=== PATIENT | female | born 1940 | race African-American/Black ===

== ENCOUNTER 2016-11-21 13:12 | Inpatient (IN) | payer MEDICARE, OTHER ==
[~2016-11-21] VITALS: Ht 152.4 cm; Wt 61.2 kg
--- NOTE | ~2016-11-21 | CN ---
Consultation Report [facility] [address] [place]. [address] NAME: CRISTA ROWELL : 38 STATUS : ADM IN PAT#: [id number] AGE: 76 ADM/REG DATE : 11/21/16 MR#: [id number] REPORT SERV DATE: 11/22/16 DICTATED BY: DATE: REPORT STATUS : Draft TRANSCRIBED BY: MODL DATE: 11/22/16 CONSULTATION DATE OF CONSULTATION: REASON FOR CONSULTATION: Chest pain and intermittent bradycardia. HISTORY OF PRESENT ILLNESS: Ms. Rowell is a delightful 76-year-old female who has a medical history of hypertension, well controlled; diverticulosis; and a questionable history of dementia, who was admitted for the concern of hemoperitoneum and potential GI mass. She has been having some nonspecific symptoms that caused her to present to an outside ER. Ultimately, this issue led to a workup secondary to her hypertension with blood pressures in the 80s over 40s and a low heart rate in the 60s. CT abdomen and pelvis revealed a small hemoperitoneum and a homogeneous solid mass at the lesser curvature of the stomach, which could potentially be consistent with a GIST, although the hemoperitoneum and potential mass were not necessarily related. Based on that, she was transferred to [facility] for further care. She was seen by Gastroenterology who wanted to do an endoscopy with biopsy today. Her hemoglobin had downtrended slightly, but was still far from being anemic. However, this morning, the patient started endorsing a little bit of chest pain and this prompted a cardiology consultation along with some sinus bradycardia in the upper 50s. When I asked Ms. Rowell about her symptoms, she said that she predominantly has abdominal pains, though occasionally, like this morning, they would radiate to the chest. They would come and go without activity or exertion, and they would subside on their own, sometimes after 30 minutes of time. She does not endorse any shortness of breath with these episodes. No palpitations, lightheadedness, dizziness, or syncope. [facility] is consulted for management of this atypical chest pain with a negative troponin x2. PAST MEDICAL HISTORY: 1. Hypertension. 2. Diverticulosis. 3. Recently discovered mass on the lesser curvature of the stomach requiring further workup. SOCIAL HISTORY: She quit smoking in the 1940s, but smoked 20 years, one pack a week for relatively low pack-year history. FAMILY HISTORY: Her father in his late 20s of unknown causes. ALLERGIES: NO KNOWN DRUG ALLERGIES. Consultation Report [facility] [address] [place]. [address] NAME: CRISTA ROWELL : 38 STATUS : ADM IN PAT#: [id number] AGE: 76 ADM/REG DATE : 11/21/16 MR#: [id number] REPORT SERV DATE: 11/22/16 DICTATED BY: DATE: REPORT STATUS : Draft TRANSCRIBED BY: MODL DATE: 11/22/16 MEDICATIONS: Currently: 1. Unasyn 3 g q.6 hours. 2. Lipitor 20 mg p.o. at bedtime. 3. Protonix 40 mg IV twice daily. 4. Colace. 5. P.r.n. Dilaudid. Please note that her antihypertensive regimen of amlodipine, rosuvastatin, and valsartan are presently being held. REVIEW OF SYSTEMS: A 10-point review of systems was conducted and was otherwise unremarkable. PHYSICAL EXAMINATION: VITAL SIGNS: Heart rates 56-67, blood pressure 107 to 125 over 51 to 68, breathing 18 times a minute, saturating 99% on room air. She is at a weight of 61 kg and a BMI of 26. GENERAL: She is a pleasant, female appearing much younger than stated age who is in no acute distress. HEENT: Normocephalic, atraumatic. EOMI. Mucous membranes are moist. LUNGS: Clear to auscultation bilaterally. No wheezes, rales, or rhonchi. CARDIOVASCULAR: Regular rate and rhythm, normal S1, S2. No murmurs, rubs, or gallops. ABDOMEN: She is soft, nontender, with hyperactive bowel sounds. No organomegaly or rebound or guarding was appreciated. EXTREMITIES: No clubbing, cyanosis, or edema. 2+ pulses were appreciated in the wrists bilaterally. NEURO: The patient is alert and oriented x4. Cranial nerves 2 through 12 are grossly intact. LABS: Notable for a potassium of 4.4, creatinine of 1, hemoglobin which is 11.1 down trending from 13. Troponins are negative x2. IMAGING: The patient had a chest x-ray, which revealed a mild elevation of the right hemidiaphragm without any acute findings. She also had mild cardiomegaly. EKG: The patient has sinus bradycardia with a left bundle-branch block. There are nonspecific T-wave findings in the inferior leads. She appears to have Q-waves in the anterior leads that would meet criteria for possible infarct. On tele, the patient is alternating between sinus bradycardia and sinus rhythm in the 50s to 80s. She has the left bundle-branch block and no events on telemetry that are noted. ASSESSMENT AND PLAN: Ms. Rowell is a 76-year-old female, who presents primarily with abdominal pain and subsequently found to have an abdominal mass requiring further workup by a biopsy, who is also noting some atypical chest pain. The fact that this pain has been coming and going for months and has not yielded that a positive troponin is Consultation Report [address] [place]. [address] NAME: CRISTA ROWELL : 38 STATUS : ADM IN PAT#: [id number] AGE: 76 ADM/REG DATE : 11/21/16 MR#: [id number] REPORT SERV DATE: 11/22/16 DICTATED BY: DATE: REPORT STATUS : Draft TRANSCRIBED BY: MODL DATE: 11/22/16 somewhat reassuring, though her EKG does reveal a bundle-branch block and these inferior Q- waves which may represent infarct, although it is unclear at this time. I think it would be reasonable to exclude any cardiac disease and so we will obtain a pharmacologic nuclear test by virtue of the fact that she has left bundle-branch block and this would be the preferred modality for this testing. I am hopeful that this will be a negative study for her, as her symptoms do not sound classic, and I think the challenges of determining a strategy as it relates to pursuing further workup of a positive stress will be challenging in the setting of this underlying mass that was discovered. With respect to her hypertension, I agree with having off her antihypertensives at the present time, specifically as she may be losing a little bit of blood and is normotensive at the present time. [facility] will continue to follow. Thank you for this consultation. PETER/BETH Tyson Chaudhari IV, MD / [id number] CC: Samir Mark MD
--- NOTE | ~2016-11-21 | HP ---
History And Physical [facility] [address] [place]. [address] NAME: CRISTA CORRIGAN : 38 STATUS : ADM IN PAT#: [id number] AGE: 76 ADM/REG DATE : 11/21/16 MR#: [id number] REPORT SERV DATE: 11/22/16 DICTATED BY: SAMIR MARK DATE: 11/21/16 REPORT STATUS : Draft TRANSCRIBED BY: MODGhassan DATE: 11/21/16 DATE OF ADMISSION: 11/21/2016 CHIEF COMPLAINT: Transfer from outside emergency department for multiple findings on CT of abdomen and pelvis including a hemoperitoneum. HISTORY OF PRESENT ILLNESS: Of note, the patient and her are both poor historians and there are no prior records to review outside of those provided by the outside emergency department. Ms. Corrigan is a 76-year-old female with a history of hypertension as well as a history of diverticulosis and what appears to be a diagnosis of dementia, who presents as a transfer from outside emergency department after presenting with not feeling well in general. The patient has trouble telling me what brought her into the emergency department this morning, but she says that in general she did not feel well and felt "funny overnight." On further questioning, she does admit to having some diffuse abdominal tenderness, but otherwise has been fairly asymptomatic. She said that prior to presenting to the emergency department, she had "a funny feeling in her chest as well as her head" though denies pain. Aside from her abdominal tenderness, she denies any abdominal distention. She denies any nausea and vomiting. She denies fevers and chills. She reports to me that she has had normal bowel movements and denies melena. She denies any bleeding in general or having been prone to bleeding in the past. She denies chest pain. She denies shortness of breath. She denies dysuria. She denies dizziness or lightheadedness or near syncope. She denies any sick contacts. She does report that she had similar symptoms that she also cannot describe well few months ago that self resolved. She denies taking any blood thinners. She does report that she has had some memory issues recently. She does not think that her pain is worse with p.o. intake and she denies any unintentional weight loss recently. Per my conversation with the emergency department physician at the outside hospital, the patient presented, was found to be a bit hypotensive with systolics of 80/44 with heart rate in the 60s. She received a L of normal saline and was started on a rate of normal saline as well. Her labs at the outside hospital were completely unremarkable with a normal CBC, normal BMP, negative troponin, and normal INR. She did eventually undergo a CT of her abdomen and pelvis initially with just IV contrast and there was initially concern for possible small bowel obstruction and so she was administered p.o. contrast and then underwent another CT of her abdomen and pelvis. On her 2nd CT abdomen and pelvis, she was noted to have what appeared to be a small hemoperitoneum though the size of this was not described in the radiology report I received though they did note that it had reportedly increased in size from her prior CT scan earlier this morning. She had many findings on her CT scan including significant diverticulosis though no evidence of diverticulitis. She also had homogeneous solid mass at the lesser curvature of the stomach that the radiologist felt could be possibly consistent with a GI stromal tumor though they did not feel that her hemoperitoneum could be related to this mass. She also had evidence of enteritis on her CT scans this morning as well as possible ileus and then also evidence of gastritis on her CT from this morning. History And Physical [address] [address] NAME: CRISTA CORRIGAN : 38 STATUS : ADM IN [facility]#: [id number] AGE: 76 ADM/REG DATE : 11/21/16 MR#: [id number] REPORT SERV DATE: 11/22/16 DICTATED BY: SAMIR MARK DATE: 11/21/16 REPORT STATUS : Draft TRANSCRIBED BY: MODGhassan DATE: 11/21/16 Given her findings of hemoperitoneum and their lack of ability to consult Surgery at the outside hospital, she was transferred here for further care. ALLERGIES: SHE REPORTS NO DRUG ALLERGIES THOUGH SHE SAYS SHE IS ALLERGIC TO TETANUS SHOT. PAST MEDICAL HISTORY: Hypertension, some memory issues as she calls it, and some diverticulosis. PAST SURGICAL HISTORY: She said she had an unknown stomach surgery around 20 years ago, but denies any other surgeries in her family. She has trouble recalling, but notes that her brother had a myocardial infarction at one point. SOCIAL HISTORY: It took some time for both her and her to tell me where they lived, but she lives with her in [place], [place]. She is a former smoker, but quit at least 40-50 years ago. She does not use alcohol and she does not use drugs. MEDICATIONS: She reportedly taking is Actonel 35 mg one time per week, 10 mg of Crestor nightly, Valsartan 320 mg daily, donepezil 5 mg daily and 10 mg of amlodipine daily. PHYSICAL EXAMINATION: VITAL SIGNS: On admission, temperature is 97.7 degrees Fahrenheit, pulse is 55, respirations 18, saturating 100% on room air, and blood pressure is 125/65. GENERAL: She is well appearing. She is in no acute distress though she is under multiple blankets and is complaining of being cold with her normal temperature. HEENT: She is normocephalic, atraumatic. There is no evidence of scleral icterus. NECK: There is no lymphadenopathy on palpation. CARDIOVASCULAR: She had a regular rate and rhythm. No rubs, murmurs, or gallops were appreciated. PULMONARY: Lungs were clear to auscultation bilaterally with no increased work of breathing. ABDOMEN: She had active bowel sounds. She is nondistended though she was tender to palpation diffusely with no distention. No rebound. No guarding. EXTREMITIES: There is no edema in the lower extremities. NEURO: She was alert and oriented though had trouble recalling her medical history. No focal deficits on exam. PSYCHIATRIC: She had poor medical insight. LABORATORY DATA AND IMAGING: White blood cell count of 8.9, her hemoglobin is 12.4, her hematocrit is 37.1, platelets 270. Sodium 142, potassium 3.8, chloride 110, bicarb 23, BUN is 24, creatinine is 0.98. Her lactate is 1.5. Magnesium is 2.4, phosphorus is 2.8, albumin is 3.1. Total bilirubin is 0.3. Alkaline phosphatase is 82, ALT is 19, AST is 14. Lipase is 103. Urinalysis is pending, though at the outside facility had large leukocyte esterase, negative nitrite, and bacteria present. Blood cultures are pending. IMAGING: Repeat CT of the abdomen and pelvis with and without contrast is pending. History And Physical [address] [place]. [address] NAME: CRISTA CORRIGAN : 38 STATUS : ADM IN PAT#: [id number] AGE: 76 ADM/REG DATE : 11/21/16 MR#: [id number] REPORT SERV DATE: 11/22/16 DICTATED BY: SAMIR MARK DATE: 11/21/16 REPORT STATUS : Draft TRANSCRIBED BY: MODL DATE: 11/21/16 ASSESSMENT AND PLAN: 1. Abdominal pain, difficult to describe, with multiple findings on outside CT abdomen and pelvis including hemoperitoneum, gastritis, enteritis, as well as diverticulosis. Labs as mentioned before. She has no evidence of coagulopathy. On admission, is not on blood thinners. For her hemoperitoneum, we will consult General Surgery. Given her relative stability with normal hemoglobin and lack of hypotension here, we will repeat her CT abdomen and pelvis and have General Surgery see her tomorrow morning or overnight should she decompensate. For evidence of gastritis at the outside hospital, we will start her on 40 mg of IV Protonix b.i.d., and then for her evidence of enteritis at the outside hospital, we will go ahead and start her on Unasyn for now especially in the setting of hypotension prior to transfer with a positive UA. We will give her clear liquids overnight and we will hold any prophylactic anticoagulation until we can further assess her hemoperitoneum. 2. The thought behind repeating her CT on admission is that she had two CTs prior today, but given progression between the two images and really the multitude of findings on our last image, we will repeat here and see what our radiologist thing. She is already on IV fluids. We will continue those overnight at 150 mL/h lactated Ringer's and monitor for any sort of contrast-induced nephropathy. 3. Urinary tract infection. She denies dysuria, but her urinalysis at the outside hospital was consistent with UTI. She does have difficult to describe abdominal pain. Given those findings, we will go ahead and treat her with Unasyn as we are treating her for enteritis anyway. We will follow up cultures. 4. Hypertension. We will hold her antihypertensive from home in the setting of her hypotension prior to transfer and monitor blood pressure. 5. Code status. I discussed the patient's code status with her and her . She wishes to be a full code. 6. DVT prophylaxis. We will place SCDs in the setting of hemoperitoneum. BRENT/BETH Samir Mark MD / [id number] CC: Samir Mark MD
--- NOTE | ~2016-11-21 | EGD ---
EGD REPORT [facility] [address] [place] [address] NAME: CRISTA ROWELL : 38 STATUS : ADM IN PAT#: [id number] AGE: 76 ADM/REG DATE : 11/21/16 MR#: [id number] REPORT SERV DATE: 11/23/16 DICTATED BY: HOWARD ROBLERO DATE: 11/23/16 REPORT STATUS : Draft TRANSCRIBED BY: [facility] DATE: 11/23/16 Endoscopy Center Patient Name: Crista Rowell Date of : 1940 Attending MD: HOWARD ROBLERO MD Procedure Date No Time: 11/23/2016 Procedure: Upper GI endoscopy Indications: Epigastric abdominal pain, Anemia, Abnormal CT of the GI tract Medicines: Propofol per Anesthesia Complications: No immediate complications. Procedure: After obtaining informed consent, the endoscope was passed under direct vision. Throughout the procedure, the patient's blood pressure, pulse, and oxygen saturations were monitored continuously. The GIF [id number] was introduced through the mouth, and advanced to the third part of duodenum. The upper GI endoscopy was accomplished without difficulty. The patient tolerated the procedure well. Findings: Non-severe esophagitis with no bleeding was found in the entire esophagus. A medium-sized hiatus hernia was present. as seen on retroflexion Diffuse mild inflammation characterized by adherent blood, congestion (edema), erosions, erythema, linear erosions, deep ulcerations and shallow ulcerations was found in the entire examined stomach. Biopsies were taken with a cold forceps for Helicobacter pylori testing. A single medium-sized papule (nodule) with no bleeding and no stigmata of recent bleeding was found in the gastric fundus. Biopsies were taken with a cold forceps for histology. Diffuse mild inflammation characterized by congestion (edema) and erythema was found in the duodenal bulb. The 2nd part of the duodenum and 3rd part of the duodenum were normal. Impression: - Non-severe reflux esophagitis. - Hiatus hernia. - Gastritis. Biopsied. - A single medium-sized papule (nodule) with no bleeding and no stigmata of recent bleeding was found in the stomach. Biopsied. - Duodenitis. - Normal 2nd part of the duodenum and 3rd part of the duodenum. EGD REPORT [address] [address] NAME: CRISTA ROWELL : 38 STATUS : ADM IN [facility]#: [id number] AGE: 76 ADM/REG DATE : 11/21/16 MR#: [id number] REPORT SERV DATE: 11/23/16 DICTATED BY: HOWARD ROBLERO DATE: 11/23/16 REPORT STATUS : Draft TRANSCRIBED BY: [employer] DATE: 11/23/16 Recommendation: - Patient has a contact number available for emergencies. The signs and symptoms of potential delayed complications were discussed with the patient. Return to normal activities tomorrow. Written discharge instructions were provided to the patient. - Continue present medications. - Low fat diet. - Continue present medications. - Await pathology results. - Return patient to hospital cr for ongoing care. Procedure Code(s): --- Professional --- 52574, Esophagogastroduodenoscopy, flexible, transoral; with biopsy, single or multiple Diagnosis Code(s): --- Professional --- K21.0, Gastro-esophageal reflux disease with esophagitis K44.9, Diaphragmatic hernia without obstruction or gangrene K29.70, Gastritis, unspecified, without bleeding K31.9, Disease of stomach and duodenum, unspecified K29.80, Duodenitis without bleeding R10.13, Epigastric pain D64.9, Anemia, unspecified R93.3, Abnormal findings on diagnostic imaging of other parts of digestive tract CPT copyright 2013 [employer]. All rights reserved. The codes documented in this report are preliminary and upon operation research analyst review may be revised to meet current compliance requirements. Howard Roblero MD HOWARD ROBLERO MD 11/23/2016 6:24 PM This report has been signed electronically. Number of Addenda: 0 Note Initiated On: 11/23/2016 5:38 PM Scope Withdrawal Time 0 hours 0 minutes 0 seconds [id number] [id number]
--- NOTE | ~2016-11-21 | CN ---
Consultation Report [facility] [address] [place]. [address] NAME: CRISTA ROWELL : 38 STATUS : ADM IN [facility]#: [id number] AGE: 76 ADM/REG DATE : 11/21/16 MR#: [id number] REPORT SERV DATE: 11/21/16 DICTATED BY: DURGA ANDRADE DATE: 11/21/16 REPORT STATUS : Draft TRANSCRIBED BY: MODL DATE: 11/21/16 CONSULTATION DATE OF CONSULTATION: 11/21/2016 REASON FOR CONSULTATION: Possible hemoperitoneum and abdominal pain. HISTORY OF PRESENT ILLNESS: Ms. Rowell is a 76-year-old female who went to the [facility] Emergency Room because she was short of breath and feeling faint. She denies having any abdominal pain. She does have a history of some type of gastric surgery, she does not recall why she had that surgery. It was more than 20 years ago. Her hemoglobin was 13 at [facility] and the CT scan done there without p.o. contrast showed a small amount of fluid in the hepatorenal space, mesentery, and a scant amount in the pelvis consistent with blood. The source was not evident. She has a 3 x 3 cm homogeneous mass on the lesser curvature of the stomach and also extensive diverticular disease without evidence of inflammation. Please see Dr. Mark's dictation from 11/21/2016 for past medical history, past surgical history, allergies, medications, social history, family history. REVIEW OF SYSTEMS: As stated in HPI, otherwise, negative. PHYSICAL EXAMINATION: VITAL SIGNS: 97.7, 55, 125/65. GENERAL: Alert elderly black female, in no acute distress. HEENT: Normocephalic, atraumatic. EOMI. PERRLA, oropharynx clear. NECK: Supple. No lymphadenopathy. LUNGS: Clear to auscultation bilaterally. HEART: Regular rate and rhythm. ABDOMEN: Soft, nontender, nondistended with appropriate surgical scar. EXTREMITIES: She moves all extremities well. NEUROLOGIC: Cranial nerves 2 through 12 intact. LABS: Labs at [facility] are currently pending but at [facility] at 06:40 a.m. this morning; white count was 8.8, H and H 13 and 38, platelets of 334. Electrolytes within normal range. Creatinine is 0.72. LFTs are normal. INR 0.94. CT scan as mentioned above. Of note, the patient has never had an EGD, and she said the colonoscopy was many years ago. ASSESSMENT AND PLAN: Presumed bleeding from a gastric mass. If her H and H are stable, I would recommend Gastroenterology for EGD and biopsy. If H and H are not stable then she will go to the operating room for curative resection and hemostasis. In the meantime, I would recommend no heparin or aspirin products. Consultation Report [address] [place] [facility] [address] NAME: CRISTA ROWELL : 38 STATUS : ADM IN PAT#: [id number] AGE: 76 ADM/REG DATE : 11/21/16 MR#: [id number] REPORT SERV DATE: 11/21/16 DICTATED BY: DURGA ANDRADE DATE: 11/21/16 REPORT STATUS : Draft TRANSCRIBED BY: BETH DATE: 11/21/16 It is my pleasure participating in the care of your patient. CELI/BETH Durga Andrade M.D. / [id number] CC: Samir Mark MD
--- NOTE | ~2016-11-21 | DS ---
Discharge Summary [facility] [address] [place]. [address] NAME: CRISTA ROWELL : 36 STATUS : DIS IN PAT#: [id number] AGE: 76 ADM/REG DATE : 11/21/16 MR#: [id number] REPORT SERV DATE: 11/25/16 DICTATED BY: SAMIR BEE DATE: 11/24/16 REPORT STATUS : Draft TRANSCRIBED BY: MODL DATE: 11/24/16 ADMISSION DATE: 11/21/2016 DISCHARGE DATE: 11/24/2016 DISCHARGE DIAGNOSES: 1. Gastritis and duodenitis leading to abdominal pain. 2. Gastric mass. 3. Urinary tract infection present on admission. 4. Hypertension. 5. Dementia. HOSPITAL COURSE: Please refer to the history and physical dictated by myself on 11/21/2016 for full history of this patient. Briefly, this patient presented as transfer from an outside facility due to concerns largely for new gastric mass as well as concerns for an intraabdominal bleed. The patient arrived here in stable condition with a stable hemoglobin and with normal lab findings, though she did have some abdominal discomfort. She was started on IV fluids and repeat imaging was obtained, and both Surgery and GI were consulted. Her new imaging which is noted below did not show any evidence of enteritis or intraabdominal hemorrhage, both of which were commented on in the CT at the outside facility, though it did re-demonstrate the gastric mass. The patient underwent an EGD on 11/24/2016 which showed gastritis and duodenitis, and a small nodule in the stomach that was biopsied. The patient had already been on IV Protonix and will be discharged with p.o. Protonix b.i.d. for her gastritis and duodenitis. Regarding her gastric mass Surgery was involved and given her excellent stability felt that the best management of this patient would be discharged home with Surgery follow up in two to three weeks at which time a laparoscopic procedure could be discussed to further investigate this mass. It seems that Surgery's opinion at this point, is that it just is the most likely etiology of this mass. For her urinary tract infection, she arrived with urinalysis that was fairly unremarkable, though her urine at the outside facility looked convincing for an infection. Given the concern initially for enteritis as well as concern for urinary tract infection, she was placed on Unasyn for which she received three days dosing ultimately for urinary tract infection. She remained afebrile with a normal white count and without symptoms of dysuria during her admission. The patient also did experience some chest discomfort while hospitalized that was somewhat concerning for angina, Cardiology was consulted. Troponin was negative multiple times. An EKG showed no signs of ischemic disease. She did undergo a vasodilator stress test which did not reveal any evidence of ischemia and was felt to be low risk for ischemic disease. PERTINENT IMAGING AND PROCEDURES DURING THIS ADMISSION: CT of the abdomen and pelvis, 11/22/2016. Impression: CT with no bowel obstruction or bowel wall inflammation, and the patient has several colonic diverticula without acute diverticulitis. Apparent thickening Discharge Summary [address] [place]. [address] NAME: CRISTA ROWELL : 36 STATUS : DIS IN [facility]#: [id number] AGE: 76 ADM/REG DATE : 11/21/16 MR#: [id number] REPORT SERV DATE: 11/25/16 DICTATED BY: SAMIR BEE DATE: 11/24/16 REPORT STATUS : Draft TRANSCRIBED BY: BETH DATE: 11/24/16 of the wall of distal colon is likely related to lack of distention. A 2.9 x 2.6 x 4 cm well-circumscribed soft tissue mass in the upper abdomen that is in contact with the diaphragm, lesser curvature of the stomach, celiac artery, and pancreas. The differential diagnosis for lesion would include just complex enteric duplication cyst, adenopathy, further eval with PET-CT should be considered if clinically indicated. Small amount of free fluid in the right posterior cul de sac. No abscess collections are present. Common bile duct is prominent in size measuring 10 mm. No gallstones or common bile duct stones are identified. There is no intrahepatic bile duct dilatation or pancreatic duct dilatation. Vasodilators stress test on 11/23/2016, low risk stress test. Transthoracic echocardiogram, 11/23/2016. Summary: Normal LV size with normal systolic function. EF is 50%. Mild anterior hypokinesis. Mild diastolic dysfunction. Normal RV size and systolic function. Aortic valve sclerosis without stenosis. No evidence of pericardial effusion. No previous echo available for comparison. EGD, 11/24/2016. Impression: Non severe reflux esophagitis. Hiatal hernia. Gastritis. Biopsied a single medium-sized papule with no bleeding and no stigmata of recent bleeding was found in the stomach biopsied. Duodenitis normal, second part of the duodenum and third part of the duodenum. DISCHARGE MEDICATIONS: 1. Multivitamin tablet p.o. daily. 2. Pantoprazole 40 mg p.o. twice per day. 3. Actonel 35 mg tablet p.o. daily. 4. Crestor 10 mg p.o. at bedtime. 5. Valsartan 320 mg p.o. daily. 6. Amlodipine 10 mg p.o. daily. FOLLOWUP: As mentioned prior, the patient will follow up in three to four weeks with Dr. Silverman for further consideration of investigation of her gastric mass including possible laparoscopic surgery. She will continue to take her 40 mg p.o. pantoprazole b.i.d. The patient did not have a primary care provider, so we did assist in finding a primary care doctor for her and she has an appointment with Dr. Dang Daily in [place], [place], on 12/06/2016, at 10:30 a.m. Approximately 40 minutes were spent coordinating discharge of this patient. BRENT/BETH Samir Bee MD / [id number] Discharge Summary [address] [address] NAME: CRISTA ROWELL : 36 STATUS : DIS IN PAT#: [id number] AGE: 76 ADM/REG DATE : 11/21/16 MR#: [id number] REPORT SERV DATE: 11/25/16 DICTATED BY: SAMIR BEE DATE: 11/24/16 REPORT STATUS : Draft TRANSCRIBED BY: BETH DATE: 11/24/16 CC: Samir Bee MD
[2016-11-21] MEDS ORDERED: CRESTOR10 PO (17:04)
[2016-11-21] MEDS ORDERED: ACTONEL35 MG PO (17:04)
[2016-11-21] MEDS ORDERED: DIOVAN320 MG PO (17:04)
[2016-11-21] MEDS ORDERED: NORV10 PO (17:05)
[2016-11-21] MEDS ORDERED: THERGRANM PO (17:05)
[2016-11-21 17:44] LABS: BASOPHILS 0.1 %; BASOPHILS ABSOLUTE 0.01 10/3/uL (0.0-0.16); EOSINOPHILS 0.6 %; EOSINOPHILS ABSOLUTE 0.05 10/3/uL (0.0-0.53); HEMATOCRIT 37.1 % (36.0-48.0); HEMOGLOBIN 12.4 g/dL (12.0-16.0); IMMATURE GRANULOCYTES 0.2 %; IMMATURE GRANULOCYTES ABSOLUTE 0.02 10/3/uL (0.0-0.11); LYMPHOCYTES 18.9 %; LYMPHOCYTES ABSOLUTE 1.69 10/3/uL (0.67-4.30); MANUAL DIFF NO %; MEAN CORPUS HGB CONC 33.4 g/dL (32.0-36.0); MEAN CORPUSCULAR HEMOGLOB 27.9 pg (26.0-34.0); MEAN CORPUSCULAR VOLUME 83.4 fL (80-100); MEAN PLATELET VOLUME 9.2 fL (9.2-13.0); MONOCYTES 6.2 %; MONOCYTES ABSOLUTE 0.55 10/3/uL (0.21-1.20); NEUTROPHILS ABSOLUTE 6.61 10/3/uL (2.02-8.40); PLATELET COUNT 270 10/3/uL (150-400); RBC DISTRIBUTION WIDTH 13.9 % (12.0-16.0); RED CELL COUNT 4.45 10/6/uL (4.0-5.6); WHITE BLOOD CELLS 8.9 10/3/uL (4.5-10.5)
[2016-11-21 17:57] LABS: A/G RATIO 1.2 (0.7-1.9); ALBUMIN 3.1 G/DL (3.5-5.0); ALKALINE PHOSPHATASE 82 U/L (45-117); BUN (BLOOD UREA NITROGEN) 24 MG/DL (6-23); CALCIUM, SERUM 8.4 MG/DL (8.5-10.4); CHLORIDE, SERUM 110 MMOL/L (96-112); CO2 (CARBON DIOXIDE) 23 MMOL/L (24-34); CREATININE 0.98 MG/DL (0.55-1.02); GFR AFRICAN AMERICAN 64 ML/MIN (>=60); GFR NON AFRICAN AMERICAN 55 ML/MIN (>=60); GLOBULIN 2.5 G/DL (2.5-4.1); GLUCOSE, SERUM 76 MG/DL (60-99); PHOSPHORUS, SERUM 2.8 MG/DL (2.5-4.5); POTASSIUM, SERUM 3.8 MMOL/L (3.5-5.3); SGOT(AST) 14 U/L (5-40); SGPT(ALT) 19 U/L (5-65); SODIUM, SERUM 142 MMOL/L (135-148); TOTAL BILIRUBIN 0.3 MG/DL (0-1.2); TOTAL PROTEIN 5.6 G/DL (6.0-8.5)
[2016-11-21 18:11] LABS: INTERNATIONAL NORMAL RATI 1.1 UNITS (-); PARTIAL THROMBO TIME 25.6 SEC (22.5-37.2); PROTIME (NOT ORD) 13.7 SEC (12.0-14.5)
[2016-11-21 22:46] LABS: ASCORBIC ACID (UR NOT ORDER) NEG (NEG); BILIRUBIN, URINE NEGATIVE (NEG); KETONE, URINE NEGATIVE (NEG); LEUKOCYTE ESTERASE(NOT OR NEG (NEG); WBC (NOT ORDERED) (RFLEX) 2 (0-5)
[2016-11-22 06:10] LABS: BASOPHILS 0.2 %; BASOPHILS ABSOLUTE 0.01 10/3/uL (0.0-0.16); EOSINOPHILS 1.3 %; EOSINOPHILS ABSOLUTE 0.07 10/3/uL (0.0-0.53); HEMATOCRIT 33.4 % (36.0-48.0); HEMOGLOBIN 11.1 g/dL (12.0-16.0); IMMATURE GRANULOCYTES 0.2 %; IMMATURE GRANULOCYTES ABSOLUTE 0.01 10/3/uL (0.0-0.11); LYMPHOCYTES 27.9 %; LYMPHOCYTES ABSOLUTE 1.48 10/3/uL (0.67-4.30); MEAN CORPUS HGB CONC 33.2 g/dL (32.0-36.0); MEAN CORPUSCULAR HEMOGLOB 27.8 pg (26.0-34.0); MEAN CORPUSCULAR VOLUME 83.5 fL (80-100); MEAN PLATELET VOLUME 9.2 fL (9.2-13.0); MONOCYTES ABSOLUTE 0.37 10/3/uL (0.21-1.20); NEUTROPHILS 63.4 %; NEUTROPHILS ABSOLUTE 3.37 10/3/uL (2.02-8.40); PLATELET COUNT 260 10/3/uL (150-400); RBC DISTRIBUTION WIDTH 14.1 % (12.0-16.0)
[2016-11-22 06:11] LABS: MANUAL DIFF NO %; WHITE BLOOD CELLS 5.3 10/3/uL (4.5-10.5)
[2016-11-22 06:18] LABS: INTERNATIONAL NORMAL RATI 1.1 UNITS (-)
[2016-11-22 06:28] LABS: ALBUMIN 3.1 G/DL (3.5-5.0); ALKALINE PHOSPHATASE 77 U/L (45-117); BUN (BLOOD UREA NITROGEN) 17 MG/DL (6-23); CALCIUM, SERUM 8.6 MG/DL (8.5-10.4); CHLORIDE, SERUM 113 MMOL/L (96-112); CO2 (CARBON DIOXIDE) 26 MMOL/L (24-34); CREATININE 0.99 MG/DL (0.55-1.02); GFR AFRICAN AMERICAN 63 ML/MIN (>=60); GFR NON AFRICAN AMERICAN 55 ML/MIN (>=60); GLUCOSE, SERUM 90 MG/DL (60-99); POTASSIUM, SERUM 4.4 MMOL/L (3.5-5.3); SGOT(AST) 15 U/L (5-40); SGPT(ALT) 19 U/L (5-65); SODIUM, SERUM 145 MMOL/L (135-148); TOTAL BILIRUBIN 0.9 MG/DL (0-1.2); TOTAL PROTEIN 6.1 G/DL (6.0-8.5)
[2016-11-22 06:56] LABS: TROPONIN I <0.02 NG/ML (<0.05)
[2016-11-22 09:31] LABS: HEMATOCRIT 33.9 % (36.0-48.0); HEMOGLOBIN 11.3 g/dL (12.0-16.0)
[2016-11-22 16:49] LABS: HEMATOCRIT 33.5 % (36.0-48.0); HEMOGLOBIN 10.9 g/dL (12.0-16.0)
[2016-11-23 02:21] LABS: BASOPHILS 0.2 %; BASOPHILS ABSOLUTE 0.01 10/3/uL (0.0-0.16); EOSINOPHILS 2.5 %; HEMATOCRIT 32.5 % (36.0-48.0); IMMATURE GRANULOCYTES 0.2 %; IMMATURE GRANULOCYTES ABSOLUTE 0.01 10/3/uL (0.0-0.11); LYMPHOCYTES 29.6 %; MEAN CORPUS HGB CONC 33.8 g/dL (32.0-36.0); MEAN CORPUSCULAR HEMOGLOB 27.9 pg (26.0-34.0); MEAN CORPUSCULAR VOLUME 82.5 fL (80-100); MEAN PLATELET VOLUME 8.9 fL (9.2-13.0); MONOCYTES 9.4 %; MONOCYTES ABSOLUTE 0.38 10/3/uL (0.21-1.20); NEUTROPHILS 58.1 %; NEUTROPHILS ABSOLUTE 2.35 10/3/uL (2.02-8.40); PLATELET COUNT 251 10/3/uL (150-400); RBC DISTRIBUTION WIDTH 13.9 % (12.0-16.0); RED CELL COUNT 3.94 10/6/uL (4.0-5.6); WHITE BLOOD CELLS 4.1 10/3/uL (4.5-10.5)
[2016-11-23 02:26] LABS: MANUAL DIFF NO %
[2016-11-23 02:47] LABS: CALCIUM, SERUM 8.7 MG/DL (8.5-10.4); CHLORIDE, SERUM 110 MMOL/L (96-112); CO2 (CARBON DIOXIDE) 26 MMOL/L (24-34); CREATININE 0.92 MG/DL (0.55-1.02); GFR AFRICAN AMERICAN 69 ML/MIN (>=60); GFR NON AFRICAN AMERICAN 60 ML/MIN (>=60); GLUCOSE, SERUM 91 MG/DL (60-99); PARTIAL THROMBO TIME 28.7 SEC (22.5-37.2); SODIUM, SERUM 144 MMOL/L (135-148)
[2016-11-23 02:48] LABS: PROTIME (NOT ORD) 13.2 SEC (12.0-14.5)
[2016-11-23 03:17] LABS: BUN (BLOOD UREA NITROGEN) 9 MG/DL (6-23)
[2016-11-23 11:54] LABS: HEMATOCRIT 35.7 % (36.0-48.0); HEMOGLOBIN 11.9 g/dL (12.0-16.0)
[2016-11-23 19:23] LABS: HEMATOCRIT 33.9 % (36.0-48.0); HEMOGLOBIN 11.4 g/dL (12.0-16.0)
[2016-11-24 01:45] LABS: HEMATOCRIT 33.7 % (36.0-48.0); HEMOGLOBIN 11.1 g/dL (12.0-16.0)
[2016-11-24 05:52] LABS: BASOPHILS 0.5 %; BASOPHILS ABSOLUTE 0.02 10/3/uL (0.0-0.16); EOSINOPHILS 3.7 %; EOSINOPHILS ABSOLUTE 0.15 10/3/uL (0.0-0.53); HEMOGLOBIN 11.1 g/dL (12.0-16.0); IMMATURE GRANULOCYTES 0.2 %; IMMATURE GRANULOCYTES ABSOLUTE 0.01 10/3/uL (0.0-0.11); LYMPHOCYTES 26.8 %; LYMPHOCYTES ABSOLUTE 1.09 10/3/uL (0.67-4.30); MANUAL DIFF NO %; MEAN CORPUS HGB CONC 32.6 g/dL (32.0-36.0); MEAN CORPUSCULAR HEMOGLOB 26.8 pg (26.0-34.0); MEAN CORPUSCULAR VOLUME 82.1 fL (80-100); MEAN PLATELET VOLUME 8.9 fL (9.2-13.0); MONOCYTES ABSOLUTE 0.57 10/3/uL (0.21-1.20); NEUTROPHILS 54.8 %; NEUTROPHILS ABSOLUTE 2.23 10/3/uL (2.02-8.40); PLATELET COUNT 243 10/3/uL (150-400); RBC DISTRIBUTION WIDTH 13.8 % (12.0-16.0); RED CELL COUNT 4.14 10/6/uL (4.0-5.6); WHITE BLOOD CELLS 4.1 10/3/uL (4.5-10.5)
[2016-11-24 06:04] LABS: BUN (BLOOD UREA NITROGEN) 7 MG/DL (6-23); CALCIUM, SERUM 8.6 MG/DL (8.5-10.4); CHLORIDE, SERUM 111 MMOL/L (96-112); CO2 (CARBON DIOXIDE) 26 MMOL/L (24-34); CREATININE 1.03 MG/DL (0.55-1.02); GFR AFRICAN AMERICAN 60 ML/MIN (>=60); GFR NON AFRICAN AMERICAN 52 ML/MIN (>=60); GLUCOSE, SERUM 86 MG/DL (60-99); POTASSIUM, SERUM 4.3 MMOL/L (3.5-5.3); SODIUM, SERUM 145 MMOL/L (135-148)
[2016-11-24 08:27] LABS: HEMATOCRIT 34.6 % (36.0-48.0); HEMOGLOBIN 11.5 g/dL (12.0-16.0)
[2016-11-24 16:01] LABS: HEMATOCRIT 33.8 % (36.0-48.0); HEMOGLOBIN 11.1 g/dL (12.0-16.0)
[2016-11-24] MEDS ORDERED: PROTONIX PO (17:36)
== END 2016-11-24 17:59 | disposition home or self-care (01) | DRG 392 ==
LOC: ENRESERV → ENRESERVDT → ENRESERVTM → 4SO 15:31 → ENPENDDIS 15:31 → 4SO 22:31
PROVIDERS: Internal Medicine; Surgery
PROC: 0DB68ZX Excision of Stomach, Via Natural or Artificial Opening Endoscopic, Diagnostic (ICD-10-PCS; principal; 2016-11-21)
DX: K29.70 Gastritis, unspecified, without bleeding (principal); I42.8 Other cardiomyopathies; F03.90 Unspecified dementia, unspecified severity, without behavioral disturbance, psychotic disturbance, mood disturbance, and anxiety; N39.0 Urinary tract infection, site not specified; K29.80 Duodenitis without bleeding; I10 Essential (primary) hypertension; I44.7 Left bundle-branch block, unspecified; K21.0 Gastro-esophageal reflux disease with esophagitis; K31.9 Disease of stomach and duodenum, unspecified; D64.9 Anemia, unspecified; K44.9 Diaphragmatic hernia without obstruction or gangrene; K57.30 Diverticulosis of large intestine without perforation or abscess without bleeding
CPT/HCPCS: 36415; 71010; 74000; 74020; 74177; 78452; 80048; 80053; 81001; 82150; 82962; 83605; 83690; 83735; 84100; 84145; 84484; 85014; 85018; 85025; 85610; 85730; 86850; 86900; 86901; 87040; 88305; 93005; 93017; 93306; A9270-GY; A9502; C9113; J0153; J0295; Q9967